=== PATIENT | female | born 1945 | race Caucasian/White ===

== ENCOUNTER 2017-07-19 14:49 | Outpatient (CLI) | payer OTHER | END 2017-07-19 14:50 | LOC: LAB 14:49 | PROVIDERS: ATTEND Nurse Practitioner Family | DX: E03.4 Atrophy of thyroid (acquired) (principal) | CPT/HCPCS: 36415; 84443 ==

== ENCOUNTER 2019-01-20 10:32 | Outpatient (CLI) | payer OTHER ==
--- NOTE | 2019-01-20 10:50 | Diagnostic Imaging Report ---
TRANG NIELSON (TAMI) - OP [facility] [address] [facility].[address] [id number] Report Submission Date: Jan 20, 2019 10:48:54 AM CDT Patient Study Name: SOLOMON PINTO Date: Jan 20, 2019 10:31:19 AM CDT Modality Type: DX Gender: F Description: CHEST 2VIEW : 47 Institution: [facility] Physician: TRANG NIELSON (TAMI) - OP Exam: Chest two views. History: Pneumonia. The examination is compared to study dated November 05, 2018. Diminished perihilar and bibasilar infiltrates are noted since the previous study. Calcified granuloma in the right midlung field is again noted. Heart and mediastinal contour are normal. Degenerate changes in the thoracic spine are noted. Impression: Old granulomatous disease. No noris consolidation or effusion. Electronically signed on Jan 20, 2019 10:48:54 AM CDT by: Saul DALEY
== END 2019-01-20 10:34 ==
LOC: RAD 10:32
PROVIDERS: ATTEND Nurse Practitioner Family
DX: J18.9 Pneumonia, unspecified organism (principal)
CPT/HCPCS: 71046